=== PATIENT | female | born 1940 | race Caucasian/White ===

== ENCOUNTER → 2016-07-19 | Outpatient (CLI) | payer MEDICARE ==
[~2016-07-19] MED LIST: CHOL-29 PO; ENAL10TA PO; MULT-658 PO; OMEP20TA2 PO
== END | disposition home or self-care (01) ==
LOC: CFH 15:31
PROVIDERS: ATTEND Internal Medicine
DX: M25.552 Pain in left hip (principal); M54.5 Low back pain
CPT/HCPCS: 72100

== ENCOUNTER → 2018-01-15 | Outpatient (CLI) | payer MEDICARE ==
[~2018-01-15] MED LIST changes: -OMEP20TA2 PO; +OMEP20TA9 PO; +REGADENOSON 0.4 MG/5 ML SYRINGE ONE
== END | disposition home or self-care (01) ==
LOC: CFH 08:01
PROVIDERS: ATTEND Internal Medicine Cardiovascular Disease
DX: R07.9 Chest pain, unspecified (principal); I44.7 Left bundle-branch block, unspecified
CPT/HCPCS: 78452; 93017; A9502; J2785

== ENCOUNTER → 2018-01-16 | Outpatient (CLI) | payer MEDICARE ==
[~2018-01-16] MED LIST changes: -REGADENOSON 0.4 MG/5 ML SYRINGE ONE
== END | disposition home or self-care (01) ==
LOC: CFH 15:53
PROVIDERS: ATTEND Internal Medicine
DX: M48.56XA Collapsed vertebra, not elsewhere classified, lumbar region, initial encounter for fracture (principal); M51.36 Other intervertebral disc degeneration, lumbar region; M48.07 Spinal stenosis, lumbosacral region
CPT/HCPCS: 72148

== ENCOUNTER 2018-05-12 05:33 | Day surgery (SDC) | payer MEDICARE ==
[~2018-05-12] VITALS: Ht 167.6 cm; Wt 55.0 kg
[2018-05-12 06:09] VITALS: BP 120/74
[2018-05-12] MEDS ORDERED: LACTATED RINGERS 1,000 ML IV SCH (06:09)
[2018-05-12 06:19] VITALS: BP 120/74
[2018-05-12 07:05] LABS: ALANINE AMINOTRANSFERASE 18 U/L (12-78); ALBUMIN 3.6 g/dL (3.4-5.0); ANION GAP 7 mmol/L (5-15); CALCIUM 9.5 mg/dL (8.5-10.1); CHLORIDE 111 mmol/L (98-107); CREATININE 0.87 mg/dL (0.55-1.02)
[2018-05-12 07:07] LABS: ALKALINE PHOSPHATASE 73 U/L (45-117); BILIRUBIN,TOTAL 0.4 mg/dL (0.2-1.0); TOTAL PROTEIN 6.9 g/dL (6.4-8.2)
[2018-05-12] MEDS ORDERED: EPINEPHRINE SYRINGE 0.1 MG/ML, 10ML ONE (07:08)
[2018-05-12] MEDS ORDERED: METHYLENE BLUE 10 MG/ML 10ML ONE (07:20)
[2018-05-12] MEDS ORDERED: FENTANYL PF 100 MCG/2ML ONE (07:22)
[2018-05-12] MEDS ORDERED: MIDAZOLAM 1 MG/ML, 2ML ONE (07:22)
[2018-05-12] MEDS ORDERED: PROPOFOL 10 MG/ML, 20ML ONE (07:36)
[2018-05-12] MEDS ORDERED: LABETALOL 5MG/ML, 20ML IV PRN (08:30)
[2018-05-12] MEDS ORDERED: OXYcodone 5 MG/5 ML ORAL.SOL UDC PO PRN (08:30)
[2018-05-12] MEDS ORDERED: ONDANSETRON 2MG/ML, 2ML IVPush PRN (08:30)
[2018-05-12] MEDS ORDERED: FENTANYL PF 100 MCG/2ML IV PRN (08:30)
[2018-05-12] MEDS ORDERED: MIDAZOLAM 1 MG/ML, 2ML IV PRN (08:30)
[2018-05-12] MEDS ORDERED: HYDROmorphone 1 MG/ML, 1ML IV PRN (08:30)
[2018-05-12] MEDS ORDERED: MEPERIDINE/PF 25MG/0.5ML IVPush PRN (08:30)
== END 2018-05-12 09:20 | disposition home or self-care (01) ==
LOC: OUT 05:33
PROVIDERS: ATTEND Internal Medicine Geriatric Medicine
DX: K63.5 Polyp of colon (principal); I10 Essential (primary) hypertension; K21.9 Gastro-esophageal reflux disease without esophagitis
CPT/HCPCS: 36415; 45380; 45390; 80053; 88305; 93005; J2250; J2704; J3010; J7120; Q9968

== ENCOUNTER → 2018-07-03 | Outpatient (CLI) | payer MEDICARE | END | disposition home or self-care (01) | LOC: CFH 09:56 | PROVIDERS: ATTEND Licensed Practical Nurse | DX: Z13.820 Encounter for screening for osteoporosis (principal); M81.0 Age-related osteoporosis without current pathological fracture; N95.8 Other specified menopausal and perimenopausal disorders | CPT/HCPCS: 77080 ==

== ENCOUNTER 2018-07-08 10:15 | Day surgery (SDC) | payer MEDICARE ==
[~2018-07-08] VITALS: Ht 167.6 cm; Wt 56.3 kg
[2018-07-08 10:59] VITALS: BP 2/70
[2018-07-08] MEDS ORDERED: SODIUM CHLORIDE 0.9% 1,000 ML IV ONE (11:00)
[2018-07-08] MEDS ORDERED: DULO30CA43 PO (11:07)
[2018-07-08] MEDS ORDERED: PROPOFOL 10 MG/ML, 20ML ONE (14:41)
[2018-07-08] MEDS ORDERED: PHENYLEPHRINE 10 MG/ML ONE (14:41)
== END 2018-07-08 13:48 | disposition home or self-care (01) ==
LOC: CACL 10:15
PROVIDERS: ATTEND Internal Medicine Cardiovascular Disease
DX: I08.3 Combined rheumatic disorders of mitral, aortic and tricuspid valves (principal); I10 Essential (primary) hypertension; E78.5 Hyperlipidemia, unspecified; I44.7 Left bundle-branch block, unspecified; Z98.51 Tubal ligation status; K21.0 Gastro-esophageal reflux disease with esophagitis; Z98.890 Other specified postprocedural states; Z83.6 Family history of other diseases of the respiratory system; Z79.899 Other long term (current) drug therapy; Z88.5 Allergy status to narcotic agent
CPT/HCPCS: 93312; 93321; 93325; J2370; J2704

== ENCOUNTER 2018-08-12 10:11 | Day surgery (SDC) | payer MEDICARE ==
[~2018-08-12] VITALS: Ht 168.9 cm; Wt 56.8 kg
[~2018-08-12 10:11] MED LIST changes: +DULO30CA43 PO
[2018-08-12 10:49] VITALS: BP 147/75
[2018-08-12] MEDS ORDERED: FLUO40CA2 PO (11:00)
[2018-08-12] MEDS ORDERED: CHOL10003 PO (11:00)
[2018-08-12] MEDS ORDERED: VITA0.4T4 PO (11:00)
[2018-08-12 11:14] LABS: BASOPHILS # (AUTO) 0.06 x10^3/uL (0-0.1); BASOPHILS % (AUTO) 1 % (0-1); EOSINOPHILS # (AUTO) 0.06 x10^3/uL (0-0.4); EOSINOPHILS % (AUTO) 1 % (1-7); LYMPHOCYTES # (AUTO) 1.75 x10^3/uL (1-3.4); LYMPHOCYTES % (AUTO) 23 % (22-44); MD NO; MEAN CORPUSCULAR HEMOGLOBIN 29.7 pg (27.0-34.8); MEAN CORPUSCULAR HGB CONC 33.1 g/dL (32.4-35.8); MEAN CORPUSCULAR VOLUME 89.7 fL (80-100); MEAN PLATELET VOLUME 9.2 fL (7.4-10.4); MONOCYTES # (AUTO) 0.86 x10^3/uL (0.2-0.8); MONOCYTES % (AUTO) 11 % (2-9); NEUTROPHILS # (AUTO) 5.03 x10^3/uL (1.8-6.8); NEUTROPHILS % (AUTO) 65 % (42-75); PLATELET COUNT 352 x10^3/uL (130-400); RED BLOOD COUNT 4.05 x10^6/uL (3.82-5.3); RED CELL DISTRIBUTION WIDTH 14.4 % (9.6-15.2)
[2018-08-12 11:26] LABS: ANION GAP 8 mmol/L (5-15); CALCIUM 9.5 mg/dL (8.5-10.1); CHLORIDE 110 mmol/L (98-107); CREATININE 0.76 mg/dL (0.55-1.02)
[2018-08-12] MEDS ORDERED: MIDAZOLAM 1 MG/ML, 5ML ONE (13:00)
[2018-08-12] MEDS ORDERED: FENTANYL PF 100 MCG/2ML ONE (13:00)
[2018-08-12] MEDS ORDERED: VERAPAMIL 2.5 MG/ML, 2ML ONE (13:01)
[2018-08-12] MEDS ORDERED: LIDOCAINE 2%, 20ML ONE (13:01)
[2018-08-12] MEDS ORDERED: HEPARIN 1,000 UNITS/ML, 10ML ONE (13:01)
[2018-08-12] MEDS ORDERED: SODIUM CHLORIDE 0.9% 1,000 ML IV SCH (13:47)
== END 2018-08-12 15:32 | disposition home or self-care (01) ==
LOC: CACL 10:11
PROVIDERS: ATTEND Internal Medicine Cardiovascular Disease
DX: I35.2 Nonrheumatic aortic (valve) stenosis with insufficiency (principal); I34.0 Nonrheumatic mitral (valve) insufficiency; I35.9 Nonrheumatic aortic valve disorder, unspecified; E78.5 Hyperlipidemia, unspecified; I44.7 Left bundle-branch block, unspecified; I10 Essential (primary) hypertension; F32.9 Major depressive disorder, single episode, unspecified; Z87.39 Personal history of other diseases of the musculoskeletal system and connective tissue; Z88.6 Allergy status to analgesic agent; Z88.8 Allergy status to other drugs, medicaments and biological substances
CPT/HCPCS: 36415; 80048; 85025; 93458; 93567; 99156; C1769; C1894; J1644; J2250; J3010; Q9967

== ENCOUNTER 2018-09-08 08:31 | Outpatient (CLI) | payer MEDICARE ==
[~2018-09-08 08:31] MED LIST changes: +CHOL10003 PO; +FLUO40CA2 PO; +VITA0.4T4 PO
[2018-09-08] MEDS ORDERED: METOPROLOL 1 MG/ML, 5ML ONE (10:17)
[2018-09-08] MEDS ORDERED: OMNIPAQUE 350 MG/ML, 150 ML BOTTLE ONE (10:52)
== END 2018-09-08 23:59 | disposition home or self-care (01) ==
LOC: RAD 08:31
PROVIDERS: ATTEND Internal Medicine Cardiovascular Disease
DX: I35.8 Other nonrheumatic aortic valve disorders (principal); M51.36 Other intervertebral disc degeneration, lumbar region; M48.56XA Collapsed vertebra, not elsewhere classified, lumbar region, initial encounter for fracture; I10 Essential (primary) hypertension; E78.5 Hyperlipidemia, unspecified; K21.0 Gastro-esophageal reflux disease with esophagitis
CPT/HCPCS: 71275; 74174; 93880; 94060; 94726; 94729; Q9967

== ENCOUNTER 2018-09-22 06:23 | Inpatient (IN) | payer MEDICARE ==
[~2018-09-22] VITALS: Ht 167.6 cm; Wt 56.0 kg
[2018-09-22] MEDS ORDERED: SODIUM CHLORIDE 0.9% 1,000 ML IV ONE (06:45)
[2018-09-22] MEDS ORDERED: ONDANSETRON 2MG/ML, 2ML IVPush PRN (07:00)
[2018-09-22] MEDS ORDERED: CHLORHEXIDINE 15 ML UDC MM PRN (07:00)
[2018-09-22 07:04] VITALS: BP 142/67
[2018-09-22 07:20] LABS: BASOPHILS # (AUTO) 0.03 x10^3/uL (0-0.1); BASOPHILS % (AUTO) 0 % (0-1); EOSINOPHILS # (AUTO) 0.09 x10^3/uL (0-0.4); EOSINOPHILS % (AUTO) 1 % (1-7); LYMPHOCYTES # (AUTO) 1.79 x10^3/uL (1-3.4); LYMPHOCYTES % (AUTO) 24 % (22-44); MD NO; MEAN CORPUSCULAR HEMOGLOBIN 28.9 pg (27.0-34.8); MEAN CORPUSCULAR HGB CONC 32.3 g/dL (32.4-35.8); MEAN CORPUSCULAR VOLUME 89.4 fL (80-100); MEAN PLATELET VOLUME 9.6 fL (7.4-10.4); MONOCYTES # (AUTO) 0.87 x10^3/uL (0.2-0.8); MONOCYTES % (AUTO) 12 % (2-9); NEUTROPHILS # (AUTO) 4.55 x10^3/uL (1.8-6.8); NEUTROPHILS % (AUTO) 62 % (42-75); PLATELET COUNT 338 x10^3/uL (130-400); RED BLOOD COUNT 4.41 x10^6/uL (3.82-5.3); RED CELL DISTRIBUTION WIDTH 14.3 % (9.6-15.2)
[2018-09-22 07:30] LABS: ALANINE AMINOTRANSFERASE 17 U/L (12-78); ANION GAP 10 mmol/L (5-15); CALCIUM 9.7 mg/dL (8.5-10.1); CHLORIDE 110 mmol/L (98-107); CREATININE 0.79 mg/dL (0.55-1.02)
[2018-09-22 07:34] LABS: ALKALINE PHOSPHATASE 67 U/L (45-117); BILIRUBIN,TOTAL 0.5 mg/dL (0.2-1.0); TOTAL PROTEIN 7.3 g/dL (6.4-8.2)
[2018-09-22 07:38] LABS: INTERNATIONAL NORMALIZED RATIO 1.14 (0.93-1.1); PROTHROMBIN TIME 11.9 Seconds (9.6-11.5)
[2018-09-22] MEDS ORDERED: FENTANYL PF 250 MCG/5ML ONE (07:50)
[2018-09-22] MEDS ORDERED: DEXAMETHASONE 4 MG/ML, 1ML ONE (09:04)
[2018-09-22] MEDS ORDERED: HEPARIN 1,000 UNITS/ML, 30ML ONE (09:04)
[2018-09-22] MEDS ORDERED: PHENYLEPHRINE 10 MG/ML ONE (09:04)
[2018-09-22] MEDS ORDERED: PROTAMINE SULFATE 10 MG/ML, 25ML ONE (09:04)
[2018-09-22] MEDS ORDERED: PROPOFOL 10 MG/ML, 20ML ONE (09:04)
[2018-09-22] MEDS ORDERED: SUCCINYLCHOLINE 20 MG/ML, 10ML ONE (09:04)
[2018-09-22] MEDS ORDERED: ROCURONIUM 10MG/ML,5ML ONE (09:04)
[2018-09-22] MEDS ORDERED: LIDOCAINE 2%, 6 ML JEL.PF.APP MM ONE (09:04)
[2018-09-22] MEDS ORDERED: SODIUM CHLORIDE 0.9% 1,000 ML IV SCH (09:31)
[2018-09-22] MEDS ORDERED: LABETALOL 5MG/ML, 20ML ONE (09:46)
[2018-09-22] MEDS ORDERED: hydrALAzine 20 MG/ML, 1ML ONE (09:46)
[2018-09-22] MEDS: ENALAPRIL 10 MG TABLET PO SCH (09:59)
[2018-09-22] MEDS ORDERED: LABETALOL 20 MG/4 ML IVPush PRN (10:00)
[2018-09-22] MEDS ORDERED: ACETAMINOPHEN 325 MG TABLET PO PRN (10:00)
[2018-09-22] MEDS ORDERED: HYDROcodone/APAP 5/325 TABLET PO PRN (10:00)
[2018-09-22] MEDS ORDERED: CLOPIDOGREL 300 MG TABLET PO ONE (10:00)
[2018-09-22] MEDS: ASPIRIN 81 MG TABLET EC PO SCH (10:00)
[2018-09-22] MEDS ORDERED: hydrALAzine 20 MG/ML, 1ML IVPush PRN (10:00)
[2018-09-22 11:51] VITALS: BP 121/71
[2018-09-22 13:43] VITALS: BP 101/64
[2018-09-22] MEDS ORDERED: CEFAZOLIN 1,000 MG ONE (15:34)
[2018-09-22] MEDS ORDERED: ONDANSETRON 2MG/ML, 2ML ONE (15:34)
[2018-09-22 18:55] VITALS: BP 116/64
[2018-09-23 01:00] VITALS: BP 117/63
[2018-09-23 05:40] LABS: ANION GAP 8 mmol/L (5-15); CALCIUM 9.1 mg/dL (8.5-10.1); CHLORIDE 107 mmol/L (98-107)
[2018-09-23 05:41] LABS: CREATININE 0.71 mg/dL (0.55-1.02)
[2018-09-23 05:42] LABS: MEAN CORPUSCULAR HEMOGLOBIN 28.9 pg (27.0-34.8); MEAN CORPUSCULAR HGB CONC 32.7 g/dL (32.4-35.8); MEAN CORPUSCULAR VOLUME 88.4 fL (80-100); MEAN PLATELET VOLUME 9.3 fL (7.4-10.4); PLATELET COUNT 254 x10^3/uL (130-400); RED BLOOD COUNT 3.71 x10^6/uL (3.82-5.3)
[2018-09-23] MEDS ORDERED: OMEPRAZOLE 20 MG CAPSULE.DR PO SCH (06:00)
[2018-09-23 06:03] LABS: BASOPHILS # (AUTO) 0.02 x10^3/uL (0-0.1); BASOPHILS % (AUTO) 0 % (0-1); EOSINOPHILS # (AUTO) 0.01 x10^3/uL (0-0.4); EOSINOPHILS % (AUTO) 0 % (1-7); LYMPHOCYTES # (AUTO) 1.65 x10^3/uL (1-3.4); LYMPHOCYTES % (AUTO) 11 % (22-44); MD SCAN; MONOCYTES # (AUTO) 1.78 x10^3/uL (0.2-0.8); MONOCYTES % (AUTO) 12 % (2-9); NEUTROPHILS # (AUTO) 11.72 x10^3/uL (1.8-6.8); NEUTROPHILS % (AUTO) 77 % (42-75)
[2018-09-23 07:10] VITALS: BP 107/68
[2018-09-23] MEDS ORDERED: CHOLECALCIFEROL 1,000 UNIT TABLET PO SCH ×2 (09:00)
[2018-09-23] MEDS ORDERED: MULTIVITS,STRESS FORMULA 1 TABLET PO SCH (09:00)
[2018-09-23] MEDS ORDERED: CLOPIDOGREL 75 MG TABLET PO SCH (09:00)
[2018-09-23] MEDS ORDERED: FLUOXETINE HCL 20 MG CAPSULE PO SCH (09:00)
[2018-09-23] MEDS: ASPIRIN 81 MG TABLET EC PO SCH (09:32)
[2018-09-23] MEDS: ENALAPRIL 10 MG TABLET PO SCH (09:33)
[2018-09-23] MEDS ORDERED: ASPI81TA45 PO (10:52)
[2018-09-23] MEDS ORDERED: CLOP75TA PO (10:52)
== END 2018-09-23 12:05 | disposition home or self-care (01) | DRG 266 ==
LOC: ORIP 06:23 → CCU 09:38 → 5SO 11:40 → DCLOUNGE 09-23 11:53
PROVIDERS: ADMIT Internal Medicine Cardiovascular Disease; ATTEND Internal Medicine Cardiovascular Disease
PROC: 03HY32Z Insertion of Monitoring Device into Upper Artery, Percutaneous Approach (ICD-10-PCS; 2018-09-22)
PROC: B3101ZZ Fluoroscopy of Thoracic Aorta using Low Osmolar Contrast (ICD-10-PCS; 2018-09-22)
PROC: 02RF38Z Replacement of Aortic Valve with Zooplastic Tissue, Percutaneous Approach (ICD-10-PCS; principal; 2018-09-22 10:00)
DX: I35.0 Nonrheumatic aortic (valve) stenosis (principal); I50.33 Acute on chronic diastolic (congestive) heart failure; D69.6 Thrombocytopenia, unspecified; F32.9 Major depressive disorder, single episode, unspecified; K22.70 Barrett's esophagus without dysplasia; K21.9 Gastro-esophageal reflux disease without esophagitis; I11.0 Hypertensive heart disease with heart failure; F41.9 Anxiety disorder, unspecified; E78.5 Hyperlipidemia, unspecified; H26.9 Unspecified cataract; I44.7 Left bundle-branch block, unspecified; M81.0 Age-related osteoporosis without current pathological fracture; Z00.6 Encounter for examination for normal comparison and control in clinical research program; Z79.899 Other long term (current) drug therapy
CPT/HCPCS: 33361; 36415; 80048; 80053; 83880; 85025; 85347; 85610; 85730; 86850; 86900; 86923; 87081; 93005; 93306; 93312; 93321; 93325; 93355; C1760; C1769; C1894; G0378; J0690; J1100; J1644; J2405; J2704; J2720; J3010; J0330; J0360; J2370; J3490; Q9967

== ENCOUNTER 2018-10-27 08:37 | Outpatient (CLI) | payer MEDICARE | END 2018-10-27 23:59 | disposition home or self-care (01) | LOC: CVU 08:37 | PROVIDERS: ATTEND Internal Medicine Cardiovascular Disease | DX: I08.8 Other rheumatic multiple valve diseases (principal); I10 Essential (primary) hypertension; E78.5 Hyperlipidemia, unspecified | CPT/HCPCS: 0399T; 93306 ==